=== PATIENT | male | born 1975 | race Caucasian/White ===

== ENCOUNTER 2018-07-20 20:11 | Emergency (ER) | payer BC ==
[~2018-07-20] VITALS: Wt 86.3 kg
[2018-07-20] MEDS ORDERED: SOD CHLORIDE 0.9% 860 ML IV ONE (22:00)
[2018-07-20] MEDS ORDERED: LORAZEPAM 2 MG INJ IV ONE (22:30)
[2018-07-20] MEDS ORDERED: OXYCODONE/ACETAMINOPHEN (10/325) TAB PO ONE (22:30)
--- NOTE | 2018-07-20 23:41 | ERD ---
ER Documentation Chief Complaint Chief Complaint C/O LOW SUGAR X'S 2 TODAY, BG 194 IN TRIAGE. HPI Patient is a 42-year-old male with hypertension and Behcet's disease as well as adrenal insufficiency who presents with low blood sugar. The patient said that he had 2 episodes of low blood sugar today in the 60s. He was confused and felt anxious. He also felt dizzy and weak. He feels more "thirsty" than usual. He said that he took 3 glucose tablets and 8 but then the blood sugar dropped again. He said that his heart rate was 168 during the episode. He has been on and off steroids recently. He said that he is due for his Percocet 10/325 x 2. He does have a primary doctor and an water filterer. There is a plan to insert a continuous glucose monitor within the next month. ROS All systems reviewed and are negative except as per history of present illness. Allergies Allergies: Coded Allergies: Sulfa (Sulfonamide Antibiotics) (Verified Allergy, Unknown, 07/20/18) prochlorperazine (Verified Allergy, Unknown, 07/20/18) topiramate (Verified Allergy, Unknown, 07/20/18) PMhx/Soc Behcet's, adrenal insufficiency Hx Psychiatric Problems: No Hx Miscellaneous Medical Probl: No Hx Alcohol Use: No Hx Substance Use: No Hx Tobacco Use: No Smoking Status: Never smoker Physical Exam Vitals Vital Signs Date Temp Pulse Resp B/P (MAP) Pulse Ox O2 O2 Flow FiO2 Time Delivery Rate 07/20/18 99.2 95 18 161/95 98 Room Air 22:17 (117) 07/20/18 99.2 123 18 172/99 98 20:47 (123) Physical Exam Const: No acute distress Head: Atraumatic Eyes: Normal Conjunctiva ENT: Normal External Ears, Nose and Mouth. Neck: Full range of motion. No meningismus. Resp: Clear to auscultation bilaterally Cardio: Regular rate and rhythm, no murmurs Abd: Soft, non tender, non distended. Normal bowel sounds Skin: No petechiae or rashes Back: No midline or flank tenderness Ext: No cyanosis, or edema Neur: Awake and alert Psych: Normal Mood and Affect Result Diagram: 07/20/18 2211 07/20/18 2211 Results 24 hrs Laboratory Tests Test 07/20/18 20:42 07/20/18 22:11 Bedside Glucose 194 mg/dL White Blood Count 6.5 10^3/ul Red Blood Count 4.66 10^6/ul Hemoglobin 14.1 g/dl Hematocrit 40.2 % Mean Corpuscular Volume 86.3 fl Mean Corpuscular Hemoglobin 30.3 pg Mean Corpuscular Hemoglobin Concent 35.1 g/dl Red Cell Distribution Width 12.7 % Platelet Count 189 10^3/UL Mean Platelet Volume 8.7 fl Immature Granulocytes % 1.100 % Neutrophils % 66.5 % Lymphocytes % 16.8 % Monocytes % 13.0 % Eosinophils % 1.7 % Basophils % 0.9 % Nucleated Red Blood Cells % 0.0 /100WBC Immature Granulocytes # 0.070 10^3/ul Neutrophils # 4.3 10^3/ul Lymphocytes # 1.1 10^3/ul Monocytes # 0.9 10^3/ul Eosinophils # 0.1 10^3/ul Basophils # 0.1 10^3/ul Nucleated Red Blood Cells # 0.0 10^3/ul Sodium Level 142 mmol/L Potassium Level 4.5 mmol/L Chloride Level 103 mmol/L Carbon Dioxide Level 29 mmol/L Anion Gap 10 Blood Urea Nitrogen 15 mg/dl Creatinine 0.67 mg/dl Est Glomerular Filtrat Rate mL/min > 60 mL/min Glucose Level 96 mg/dl Calcium Level 9.5 mg/dl Phosphorus Level 3.6 mg/dl Magnesium Level 1.9 mg/dl Current Medications Medications Dose Sig/Bryan Start Time Status Last (Trade) Ordered Route PRN Stop Time Admin Dose Reason Admin Sodium 860 ml @ ONCE ONCE 07/20/18 DC 07/20/18 Chloride 860 mls/hr IV 22:00 22:30 07/20/18 22:59 Lorazepam 0.5 mg ONCE ONCE 07/20/18 DC 07/20/18 (Ativan) IV 22:30 23:21 07/20/18 22:31 Oxycodone/ 2 tab ONCE ONCE 07/20/18 DC 07/20/18 Acetaminophen PO 22:30 22:29 (Endocet 07/20/18 22:31 (10/ 325)) Procedures/MDM Patient is a 42-year-old male who presents with hypoglycemia. Laboratory studies are basically normal and Accu-Chek and glucose on the BMP are normal as well. The patient was given normal saline bolus. The patient is awake and alert and answering all questions appropriately. I believe outpatient management is appropriate but I did recommend close follow-up with the water filterer within 24 to 48 hours. The patient can return for any worsening symptoms. Departure Diagnosis: Primary Impression: Hypoglycemia Condition: Fair Patient Instructions: Hypoglycemia (Low Blood Sugar) Referrals: Your water filterer Additional Instructions: SPECIALIST: YOU HAVE A MEDICAL CONDITION WHICH REQUIRES YOU TO SEE A SPECIALIST WITHIN THE NEXT 1-2 DAYS. PLEASE FOLLOW UP WITH YOUR PRIMARY PHYSICIAN FOR REFFERAL.IF YOU DO NOT HAVE A PRIMARY CARE PHYSICIAN AND/OR YOU CAN NOT AFFORD TO SEE A PHYSICIAN THE FOLLOWING RESOURCES HAVE BEEN SUPPLIED TO YOU. IT IS YOUR RESPONSIBILITY TO BE SEEN BY THE SPECIALIST ASHLEY CORODBA MD July 20, 2018 23:41
[2018-07-21 00:10] VITALS: BP 155/82; PULSE 81; RESP 19
== END 2018-07-21 00:13 | disposition home or self-care (01) ==
LOC: E/R 20:11
DX: E16.2 Hypoglycemia, unspecified (principal)
CPT/HCPCS: 36415; 80048; 82962; 83735; 84100; 85025; 96374; 99284; J2060; J7030